=== PATIENT | male | born 1980 | race Caucasian/White ===

== ENCOUNTER 2018-01-28 13:58 | Emergency (ER) | END 2018-01-28 17:46 | disposition home or self-care (01) ==

== ENCOUNTER 2018-02-08 15:11 | Emergency (ER) | END 2018-02-08 17:25 | disposition home or self-care (01) ==

== ENCOUNTER 2018-12-22 16:52 | Emergency (ER) | payer SELFPAY ==
[~2018-12-22] VITALS: Ht 182.9 cm; Wt 96.2 kg
[~2018-12-22 16:52] MED LIST: BEN50 PO; HYDR-4011 PO; IBUP-1542 PO
[2018-12-22 17:13] VITALS: BP 127/62; PULSE 76; RESP 16; Ht 182.9 cm; Wt 96.2 kg
[2018-12-22] MEDS ORDERED: NPH10OT RIGHT EAR (17:52)
--- NOTE | 2018-12-22 17:57 | ERD ---
ER Documentation Chief Complaint Chief Complaint R ear pain x 2 weeks HPI 38-year-old male presents to the emergency department complaining of right ear pain intermittently for the past 2 weeks. He states pain is currently moderate in severity. He tried no medication for relief of symptoms. He denies any fevers, chills, or other symptoms currently. ROS All systems reviewed and are negative except as per history of present illness. Medications Home Meds Active Scripts Neomycin/Polymyxin/Hydrocort* (Cortisporin* Otic) 10 Ml Susp, 4 DROP RIGHT EAR QID, #1 EA Prov:TUTU EVANS PA-C 12/22/18 Ibuprofen* (Motrin*) 600 Mg Tab, 600 MG PO Q8, #20 TAB Prov:TYSON RAJAN MD 02/08/18 Hydrocodone/Acetaminophen (Homeland 5-325 Tablet) 1 Each Tablet, 1 TAB PO Q6H PRN for PAIN, #15 TAB Prov:TYSON RAJAN MD 02/08/18 Diphenhydramine Hcl* (Benadryl*) 50 Mg Cap, 50 MG PO QHS, #10 CAP Prov:RADHA LIRIANO PA-C 01/28/18 Allergies Allergies: Coded Allergies: No Known Allergy (Unverified , 02/08/18) PMhx/Soc Medical and Surgical Hx: pt denies Medical Hx, pt denies Surgical Hx Hx Alcohol Use: No Hx Substance Use: No Hx Tobacco Use: No Smoking Status: Never smoker FmHx Family History: No diabetes Physical Exam Vitals Vital Signs Date Temp Pulse Resp B/P (MAP) Pulse Ox O2 O2 Flow FiO2 Time Delivery Rate 12/22/18 97.3 76 16 127/62 96 17:13 (83) Physical Exam Const: No acute distress Head: Atraumatic Eyes: Normal Conjunctiva ENT: Normal External Ears, Nose and Mouth. There is purulent discharge noted in the right external auditory canal with mild edema. Visualized portion of the tympanic membrane appears normal. Left EAC and TM are normal in appearance. Neck: Full range of motion. No meningismus. Resp: Clear to auscultation bilaterally Cardio: Regular rate and rhythm, no murmurs Skin: No petechiae or rashes Ext: No cyanosis, or edema Neur: Awake and alert Psych: Normal Mood and Affect Procedures/MDM 38-year-old male presents to the emergency department with signs and symptoms most consistent with right-sided otitis externa without evidence of otitis media, TM rupture, mastoiditis, sepsis, serious bacterial infection, or other emergencies. Patient will be given prescription for Cortisporin otic and discharged home with instructions to follow-up primary care provider and return to the department medially for any new or worsening or concerning symptoms. Questions and concerns addressed prior to discharge. Departure Diagnosis: Primary Impression: Otitis externa Condition: Fair Patient Instructions: External Ear Infection (Adult) [facility] Usted se roach hecho un examen mdico de control que le indica que no est en rikki condicin que requiera tratamiento urgente en el Departamento de Emergencia. Un estudio ms profundo y el tratamiento de hall condicin pueden esperar sin ningn riesgo hasta que usted sea atendida/o en el consultorio de hall mdico o rikki clnica. Es responsabilidad suya arreglar rikki hayden para el seguimiento del hernán. MANEJO DE CONDICIONES NO URGENTES EN EL FUTURO 1) Si usted tiene un mdico de atencin primaria: Usted debera llamar a hall mdico de atencin primaria antes de venir al departamento de emergencia. Despus de las horas de consultorio, hall doctor o hall asociado/a est disponible por telfono. El mdico o enfermero de nancy en el servicio telefnico puede asesorarle por emma medio para atender el problema, o hernán contrario se puede programar rikki hayden. 2) Si usted no tiene un mdico de atencin primaria: Llame al mdico o clnica de referencia que aparece abajo james las horas de consultorio para hacer rikki hayden para que le vean. CLINICAS: [facility] [phone] [id number] [facility] [phone] [address] [facility] [phone] [facility] [phone] [facility] [phone] [address] [facility] [phone] [address] Additional Instructions: Llame al doctor MAANA y nnamdi rikki HAYDEN PARA DENTRO DE 1-2 BERRIOS.Dgale a la secretaria que nosotros le instruimos hacer esta hayden.Avise o llame si hall condicin se empeora antes de la hayden. Regresa aqui si peor o no mejor. TUTU EVANS PA-C Dec 22, 2018 17:57
== END 2018-12-22 18:11 | disposition home or self-care (01) ==
LOC: FTE 16:52
DX: H60.91 Unspecified otitis externa, right ear (principal)
CPT/HCPCS: 99283